=== PATIENT | male | born 1980 | race Caucasian/White ===

== ENCOUNTER → 2019-01-06 | Day surgery (SDC) | payer BC ==
[~2019-01-06] MED LIST: FENTANYL CITRATE/PF 100MCG/2 ML INJ ONE; GLUCAGON FOR INJ 1 MG VIAL ONE; HYOSCYAMINE 0.125 MG TAB ONE; LIDOCAINE HCL 2% LOCAL INJ 5 ML SDV VIAL INJ ONE; LINZESS PO; NEXIUM40 MG PO; PROMETHAZINE HCL (IM) 25 MG/ML VIAL ONE; PROPOFOL IV EMULSION 10 MG/ML 50 ML VIAL ONE
--- OUTSIDE RECORDS SUMMARY | 2019-01-06 14:03 | XMS REPORT | Clinical Summary ---
[facility] Address Unknown Phone Unavailable Care Team Providers Care Kettle Cook Name Role Phone Jae Jordan MD PCP Allergies No Known Allergies Medications End Date Status Medication Sig Dispensed Refills Start Date Active esomeprazole (NexIUM) 40 Take 40 mg by 0 mg packet mouth daily before breakfast. Active Problems No known active problems Family History Medical History Relation Name Comments Colon polyps Father Heart failure Father Heart failure Mother Heart failure Paternal Grandfather Heart failure Paternal Grandmother Relation Name Status Comments Father Mother Paternal Grandfather Paternal Grandmother Social History Date Tobacco Use Types Packs/Day Years Used Current Some Day Smoker Cigars Comments: twice a year Alcohol Use Drinks/Week oz/Week Comments Yes 1 Cans of 1.2 socially only beer 1 Standard drinks or equivalent Sex Assigned at Date Recorded Not on file Industry Job Start Date Occupation Not on file Not on file Not on file Travel End Travel History Travel Start No recent travel history available. Last Filed Vital Signs Not on file Plan of Treatment Not on file Results Not on fileafter 01/05/2018 Insurance Type Payer Benefit Subscriber ID Effective Phone Address Plan / Dates Group PPO BCBS BCBS xxxxxxxxxxxx 2007-P CHOICE resent PPO/[employer] EMPL PPO Advance Directives Patient has advance care planning documents on file. For more information, petr josé contact: Supa Jama [address] [place] [phone]
--- NOTE | 2019-01-06 19:08 | Operative Report ---
DATE OF PROCEDURE: 01/06/2019 SURGEON: Delon Riojas MD PROCEDURES: 1. Esophagogastroduodenoscopy with biopsies. 2. Colonoscopy with polypectomy and biopsies. INDICATIONS FOR EGD: Heartburn and indigestion. INDICATIONS FOR COLONOSCOPY: Personal history of colon polyps and intermittent diarrhea. MEDICATIONS: The patient was done under MAC, please see anesthesiologist's note. PROCEDURE IN DETAIL: With the patient in left lateral decubitus position, a flexible fiberoptic Olympus gastroscope was introduced into the esophagus under direct visualization without any difficulty. There was some patchy erythema noted in the distal esophagus. Minute tongues of velvety red mucosa were noted to extend proximally from the GE junction. Biopsies were obtained to rule out Jose's. The scope was then advanced with ease into the stomach. Mucosa overlying the antrum and the body revealed some patchy erythema and low-grade to moderate edema and biopsies were obtained and sent to stain for H pylori. A minute polyp was noted in the proximal body that was partially excised with the cold biopsy forceps. The pylorus was of normal contour and shape, it was intubated with ease and the scope was advanced all the way to the second portion of the duodenum. Biopsies were obtained from the second portion and the duodenal bulb to rule out sprue. The scope was then withdrawn back into the stomach and retroflexed. Mucosa overlying the fundus and the cardia appeared to be within normal limits. The scope was then straightened out, it was subsequently withdrawn. The patient tolerated the procedure well. IMPRESSION: 1. Distal esophagitis, mild. 2. Rule out Jose's esophagus. 3. Gastritis, biopsied. Biopsies sent to stain for Helicobacter pylori. 4. Gastric polyp, body, partially excised with cold biopsy forceps. 5. Rule out sprue. PLAN: Follow up histology. Increase Nexium to 40 mg one p.o. a.c. b.i.d. The patient was then turned around. After adequate lubrication of the anal canal, flexible fiberoptic Olympus colonoscope was inserted into the rectum with ease and advanced all the way to the cecum. Mucosa overlying the cecum appeared to be within normal limits. The ileocecal valve was intubated and the scope was advanced into the terminal ileum, biopsies were obtained. The scope was then withdrawn back into the colon. It was then withdrawn slowly. Mucosa overlying the ascending colon and transverse colon appeared to be within normal limits. Three polyps were hot biopsied from the descending colon. Mild inflammatory changes were noted in the left colon and the rectum, and biopsies were obtained. There was a friable nodule noted in the distal sigmoid that was biopsied. The scope was then retroflexed into the distal rectum and moderate-sized internal hemorrhoids were noted, none of which was actively bleeding. The scope was then straightened out, it was subsequently withdrawn after securing an adequate stool specimen that was sent for the appropriate stool studies. The patient tolerated the procedure well. IMPRESSION: 1. Descending colon polyps x3, hot biopsied. 2. Mild patchy left-sided colitis. 3. Friable nodule, distal sigmoid, biopsied. 4. Proctitis, mild. 5. Internal hemorrhoids, none actively bleeding. PLAN: Follow up histology. Follow up stool studies. Initiate Visbiome one p.o. b.i.d. and Bentyl 10 mg one p.o. t.i.d. The patient might benefit from a followup colonoscopy in 3 to 5 years. Delon Riojas MD [facility] [place][id number] cc: Jae Jordan DO
[2019-01-06 20:28] LABS: WBC,FECAL (FECAL LACTOFERRIN) NEGATIVE (NEGATIVE)
[2019-01-06 20:30] VITALS: BP 115/79
[2019-01-07 14:07] LABS: C DIFFICILE TOXIN A&B AMP PROB NEGATIVE (NEGATIVE)
== END | disposition home or self-care (01) ==
LOC: OR 14:00
PROVIDERS: ATTEND Internal Medicine Gastroenterology
DX: K29.70 Gastritis, unspecified, without bleeding (principal); K63.5 Polyp of colon; K31.7 Polyp of stomach and duodenum; K51.50 Left sided colitis without complications; K20.9 Esophagitis, unspecified; K21.9 Gastro-esophageal reflux disease without esophagitis; K59.00 Constipation, unspecified; K63.89 Other specified diseases of intestine; K62.89 Other specified diseases of anus and rectum; K64.8 Other hemorrhoids; G56.01 Carpal tunnel syndrome, right upper limb; Z01.810 Encounter for preprocedural cardiovascular examination; Z68.36 Body mass index [BMI] 36.0-36.9, adult
CPT/HCPCS: 43239; 45380; 45384; 83630; 83993; 87045; 87177; 87328; 87493; 93005; J1610; J2001; J2550; J2704; J3010

== ENCOUNTER → 2019-02-27 | Outpatient (CLI) | payer BC ==
[~2019-02-27] MED LIST changes: -FENTANYL CITRATE/PF 100MCG/2 ML INJ ONE; -GLUCAGON FOR INJ 1 MG VIAL ONE; -HYOSCYAMINE 0.125 MG TAB ONE; -LIDOCAINE HCL 2% LOCAL INJ 5 ML SDV VIAL INJ ONE; -PROMETHAZINE HCL (IM) 25 MG/ML VIAL ONE; -PROPOFOL IV EMULSION 10 MG/ML 50 ML VIAL ONE
--- NOTE | 2019-02-27 11:13 | Diagnostic Imaging Report ---
EXAM: US ABDOMEN COMPLETE DATE: 02/27/2019 7:49 AM INDICATION: Abdominal pain COMPARISON: None TECHNIQUE: Transverse and longitudinal blanco scale and color doppler sonographic images of the upper abdomen were obtained. FINDINGS: There is no evidence of fluid or masses seen in the area of clinical concern in the right lower quadrant. LIVER 15.8 cm in the right midclavicular line. Increased echogenicity of the liver with mildly nodular surface contour, no masses. SPLEEN 11.5 cm in maximum diameter. Normal echogenicity, no masses. GALLBLADDER No gallbladder wall thickening, distension, stone, or pericholecystic fluid. Negative reported sonographic Márquez's sign. Gallbladder wall measures 2 mm BILE DUCTS No intra nor extra-hepatic biliary dilation. Common bile duct measures 4 mm PANCREAS: Visualized portions are normal. RIGHT KIDNEY: 11.1 cm Echogenicity: Normal Collecting System: No hydronephrosis Stones: None Cyst/Mass: None LEFT KIDNEY: 11.7 cm Echogenicity: Normal Collecting System: No hydronephrosis Stones: None Cyst/Mass: None VESSELS: Aorta: Visualized portions are within normal size limits Inferior Vena Cava: Visualized portions are normal Main Portal Vein: 1.3 cm, normal size with hepatopetal flow. FREE FLUID: None IMPRESSION: No cholelithiasis or sonographic evidence of cholecystitis. No hydronephrosis or renal calculi. Hepatic steatosis and mildly nodular liver surface contour, which can be seen with early cirrhosis. Signed by: Emmanuelle Rasheed MD on 02/27/2019 11:10 AM
== END ==
LOC: US 07:39
PROVIDERS: ATTEND Internal Medicine Gastroenterology
DX: R19.7 Diarrhea, unspecified (principal); R10.84 Generalized abdominal pain
CPT/HCPCS: 76700